=== PATIENT | male | born 1990 | race African-American/Black ===

== ENCOUNTER 2016-11-09 07:57 | Emergency (ER) | payer SELFPAY | END 2016-11-09 08:43 | disposition left against medical advice (07) | LOC: NAV ERS 07:57 | DX: Z53.21 Procedure and treatment not carried out due to patient leaving prior to being seen by health care provider (principal) ==

== ENCOUNTER 2016-11-14 12:42 | Emergency (ER) | payer SELFPAY | END 2016-11-14 13:04 | disposition home or self-care (01) | LOC: NAV ERS 12:42 | DX: S41.012D Laceration without foreign body of left shoulder, subsequent encounter (principal); S21.011D Laceration without foreign body of right breast, subsequent encounter; F17.210 Nicotine dependence, cigarettes, uncomplicated; X58.XXXD Exposure to other specified factors, subsequent encounter ==

== ENCOUNTER 2017-04-01 16:49 | Emergency (ER) | payer SELFPAY ==
[2017-04-01] MEDS ORDERED: Ibuprofen 800 MG TAB ONE (17:32)
== END 2017-04-01 17:51 | disposition home or self-care (01) ==
LOC: NAV ERS 16:49
DX: S00.01XA Abrasion of scalp, initial encounter (principal); S60.512A Abrasion of left hand, initial encounter; F17.210 Nicotine dependence, cigarettes, uncomplicated; W01.198A Fall on same level from slipping, tripping and stumbling with subsequent striking against other object, initial encounter; Y99.0 Civilian activity done for income or pay
CPT/HCPCS: 99283